=== PATIENT | female | born 1960 | race Caucasian/White ===

== ENCOUNTER → 2024-05-09 07:28 | Outpatient (REF) | payer OTHER, SELFPAY | LOC: DHCBC/DCA 07:28 | PROVIDERS: ATTENDING PHYSICIAN Internal Medicine Interventional Cardiology | DX: I10 Essential (primary) hypertension (principal); R06.09 Other forms of dyspnea; I25.10 Atherosclerotic heart disease of native coronary artery without angina pectoris; I25.5 Ischemic cardiomyopathy | CPT/HCPCS: 78452; 93017; A9500 ==

== ENCOUNTER → 2024-10-05 08:07 | Outpatient (REF) | payer OTHER, SELFPAY | LOC: WDC 08:07 | PROVIDERS: ATTENDING PHYSICIAN Nurse Practitioner Family | DX: Z12.31 Encounter for screening mammogram for malignant neoplasm of breast (principal) | CPT/HCPCS: 77063; 77067 ==

== ENCOUNTER 2024-11-07 07:10 | Emergency (ER) | payer OTHER, SELFPAY ==
[2024-11-07 07:12] VITALS: BP 162/82
--- NOTE | 2024-11-07 08:34 | ED.GENMED ---
History of Present Illness
<MOY Wilder - Last Filed: 11/07/24 08:52>
General
Chief Complaint: Eye Problems
Source: patient
Exam Limitations: none
Time Seen by Provider: 11/07/24 08:33
Nursing documentation reviewed up to this point in time: agreed with
History of Present Illness
History of Present Illness:
Patient is a 64-year-old female who presents to the ER for evaluation. Patient reports on Thursday 2 days ago she woke up with redness and mild swelling around the left face eye. She reports area is itchy. She complains of mild redness denies any
actual pain. She denies any fever or chills. She does not feel ill. She denies any actual eye pain or redness.
She has not taken anything for symptoms.
Past History
<MOY Wilder - Last Filed: 11/07/24 08:52>
Past History
ED Past Medical History: CAD and Other (Copper deficiency); Negative HTN or Hypercholesterolemia
ED Past Surgical History: Cardiac
Social History
Tobacco: Non-smoker
Alcohol: None
Drug: None
Personal:
Living: with family
Employment: Employed
Family History
Family History: Hypertension
Review of Systems
<MOY Wilder - Last Filed: 11/07/24 08:52>
Review of Systems
Allergies reviewed?: Yes
All Other Systems: ROS reviewed and negative except as documented in HPI and ROS
Constitutional: Reports no symptoms; Denies fever, fatigue or chills
EENT: Reports other (swelling around left face/eye region )
Respiratory: Reports no symptoms
Cardiac: Reports no symptoms
ABD/GI: Reports no symptoms
Skin: Reports other (mild redness to left face)
Neurological: Reports no symptoms
Psychiatric: Reports no symptoms
Phy Exam
<MOY Wilder - Last Filed: 11/07/24 08:52>
General Physical Exam
General Presentation: no apparent distress
General age: appears stated age
General Skin: warm and dry
General Habitus: normal
General Mental: alert
General Hydration: appears well hydrated
Eye Exam
Eye Exam: PERRL, EOMI and other (Conjunctiva clear mild redness to and around left eyelid very minimal swelling no pain with eye movement no induration no fluctuance to skin surrounding eye )
Eye Exam General: PERRL: bilateral and EOM intact: bilateral
Pupil Exam: Bilateral: round and reactive
Neurological Exam
Neurological Exam: alert and oriented x3
Musculoskeletal Exam
Musculoskeletal Exam: full ROM
Skin Exam
Skin Exam: normal color, warm/dry and other (Mild left-sided facial swelling around eyelid as documented above and around left cheek)
Psychiatric Exam
Psychiatric Exam: normal mood/affect
Course
<MOY Wilder - Last Filed: 11/07/24 08:52>
Orders/Labs/Results
Orders:
Orders
11/07/24 07:25
Visual Acuity- Treatment ONCE
11/07/24 08:40
Cephalexin Monohydrate [Keflex] 500 mg PO NOW STA
Vital Signs
Initial and Last Documented VS:
Initial Vital Signs
Temp Pulse Resp BP Pulse Ox
98.4 F 74 18 162/82 99
11/07/24 07:12 11/07/24 07:12 11/07/24 07:12 11/07/24 07:12 11/07/24 07:12
Last Documented Vital Signs
Temp Pulse Resp BP Pulse Ox
98.4 F 74 18 162/82 99
11/07/24 07:12 11/07/24 07:12 11/07/24 07:12 11/07/24 07:12 11/07/24 07:12
<Shane Ingram DO - Last Filed: 11/07/24 08:42>
Orders/Labs/Results
Orders:
Orders
11/07/24 07:25
Visual Acuity- Treatment ONCE
11/07/24 08:40
Cephalexin Monohydrate [Keflex] 500 mg PO NOW STA
Vital Signs
Initial and Last Documented VS:
Initial Vital Signs
Temp Pulse Resp BP Pulse Ox
98.4 F 74 18 162/82 99
11/07/24 07:12 11/07/24 07:12 11/07/24 07:12 11/07/24 07:12 11/07/24 07:12
Last Documented Vital Signs
Temp Pulse Resp BP Pulse Ox
98.4 F 74 18 162/82 99
11/07/24 07:12 11/07/24 07:12 11/07/24 07:12 11/07/24 07:12 11/07/24 07:12
<MOY Wilder - Last Filed: 11/07/24 08:52>
MDM/Problems Addressed
Differential Diagnosis Includes:
not limited to : facial cellulitis/allergic reaction
MDM/Problems Addressed:
Symptoms likely allergic reaction patient complains of itching to the area with mild redness and swelling however no actual eye pain or eye involvement no eye drainage. Triage note reports patient complains of blurry vision she denies any actual
blurry vision she feels that she is noticing the problem because of the swelling around her eyelid. Patient is in no acute distress nontoxic afebrile. She has not taken anything for symptoms will DC with ice ibuprofen she may either take
Benadryl/Claritin for allergic component however will still cover with Keflex for possible mild cellulitis.
Patient afebrile nontoxic discussed close follow-up and to return if any worsening of symptoms
<MOY Wilder - Last Filed: 11/07/24 08:52>
*Critical Care Note
Total Time (30-74mins, 75-104mins- exclusive of procedures): Not Applicable
ED Attending Note
<MOY Wilder - Last Filed: 11/07/24 08:52>
-
Portions of this chart may have been created with voice recognition software.� Occasional wrong word or��sound alike� substitutions may have occurred due to the inherent limitations of voice recognition software.
<Shane Ingram DO - Last Filed: 11/07/24 08:42>
ED Attending Note
Patient seen and examined by attending physician: Yes
I performed the substantive portion of visit, reviewed & personally made and approve the management plan that is documented in note by myself or JAKI.: Yes
ED Attending Note:
I have seen and evaluated the patient with a [id number] encounter. I have spoken to the advance practicer provider and involved in the medical history, the physical exam, medical decision making.
Evaluation and management service: agree unless noted differently below.
Results interpretation: agree unless noted differently below.
Focused HPI: 64-year-old female presenting with swelling and irritation to the left side of her face. She denies any new creams or fevers
Physical exam: Mild erythema surrounding left orbit. No proptosis
Medical Decision Making: Will treat as possible allergic reaction and will cover antibiotics to cover possible periorbital cellulitis
Discharge Plan
Departure
Patient Disposition: Home (Routine Discharge)
Date of Disposition: 11/07/24
Time of Disposition: 08:41
Patient with high blood pressure during this ER visit?: Yes
Condition: Fair
Covid-19: Not Applicable
Discharge Problem:
mild facial cellulitis
Instructions: Cellulitis (skin infection) in adults - Discharge instructions, BLOOD PRESSURE
Prescriptions:
New
cephalexin 500 mg capsule
500 mg PO Q6H Qty: 28 0RF
No Action
Darvocet-N 100 Tablet
PO Q4HPRN PRN (Reason: pain)
azithromycin 250 MG tablet
250 mg PO DAILY Qty: 6 0RF
Activity Restrictions/Additional Instructions:
As discussed this is likely allergic reaction however you will also be treated for possible mild skin infection with antibiotics. You were given the first dose here in the ER and a prescription was sent to your pharmacy. In addition. Please apply
ice, cool compresses to area several times a day. You may take ibuprofen and also either Benadryl or Claritin for allergic component. Follow-up with family doctor in the next several days and return if any worsening of symptoms including
increasing facial swelling ,fever chills pain or any further concerns.
Interventions
Interventions:
*Risk Screen - Suicide Last Done: 11/07/24 07:12
*General Assessment Last Done: 11/07/24 07:12
*Neglect/Abuse Screening Last Done: 11/07/24 07:12
Discharge Date and Time
Print Language: OCCITAN
[2024-11-07] MEDS: KEFLEX 500 MG PO (08:48)
== END 2024-11-07 09:05 | disposition home or self-care (01) ==
LOC: EMR 07:10
PROVIDERS: EMERGENCY PHYSICIAN Student in an Organized Health Care Education/Training Program; FAMILY PHYSICIAN Family Medicine
DX: L03.211 Cellulitis of face (principal); I25.10 Atherosclerotic heart disease of native coronary artery without angina pectoris
CPT/HCPCS: 99283

== ENCOUNTER 2025-01-26 15:45 | Emergency (ER) | payer OTHER, SELFPAY ==
[2025-01-26 15:49] VITALS: BP 137/61
--- NOTE | 2025-01-26 17:02 | ED.MUSCINJ ---
HPI-Injury
General
Chief Complaint: Musculo-Skeletal Complaint
Source: patient
Exam Limitations: none
Time Seen by Provider: 01/26/25 16:27
Nursing documentation reviewed up to this point in time: agreed with
History of Present Illness-Injury
Is this injury a work related problem?: No
Is pt an associate of [facility]?: No
Initial Injury comments:
Patient states she was getting up from a chair and rolled ankle. Unsure if foot was asleep. Denies hitting her head. COmplains of pain to her left lat ankle. Injuryoccurred this afternoon.
Past History
Past History
ED Past Medical History: CAD and Other (Copper deficiency); Negative HTN or Hypercholesterolemia
ED Past Surgical History: Cardiac
Social History
Tobacco: Non-smoker
Alcohol: None
Drug: None
Personal:
Living: with family
Employment: Employed
Family History
Family History: Hypertension
Review of Systems
Review of Systems
Allergies reviewed?: Yes
All Other Systems: ROS reviewed and negative except as documented in HPI and ROS
Constitutional: Reports no symptoms
EENT: Reports no symptoms
Respiratory: Reports no symptoms
Cardiac: Reports no symptoms
ABD/GI: Reports no symptoms
: Reports no symptoms
Musculoskeletal: Reports joint pain (pain to left lat ankle)
Skin: Reports no symptoms
Neurological: Reports no symptoms
Psychiatric: Reports no symptoms
Musculoskeletal Injury Exam
Musculoskeletal Injury Exam
Left Lateral Ankle:
Pain with Movement?: Moderate
Tender to palpation?: Moderate
Soft tissue swelling?: Moderate
External deformity and angulation?: None
Joint effusion?: None
Contusion?: None
Hematoma-local bleeding into tissue?: Moderate
Strain- Sprain- Tear (Connective tissue injury)?: Moderate
Crepitus with movement?: No
Joint instability?: No
Malalignment/deformity?: No
Range of motion: Limited
Distal skin color and temperature: normal-warm & good color
Capillary Refill: normal
Normal distal neurovascular exam?: Yes
Peripheral Pulses: posterior tibial (left): 3+ and dorsalis pedis (left): 3+
Phy Exam
General Physical Exam
General Presentation: well appearing and no apparent distress
General age: appears stated age
General Skin: warm and dry
General Habitus: normal
Musculoskeletal Exam
Musculoskeletal Exam: neuro vasc intact and other (achilles intact. No tenderness base of 5th, proximal tib/fib)
Skin Exam
Skin Exam: normal color, warm/dry and no rash
Psychiatric Exam
Psychiatric Exam: normal mood/affect
Injury Course
Orders/Labs/Results
Orders:
Orders
01/26/25 15:46
Ankle, left 3 view CR [CR Ankle - Left Min 3 Views ] Urgent
Comment:
Reason For Exam: pain, swelling
01/26/25 17:01
Ortho Boot Left- Treatment ONCE
Short or tall?: Tall
*Radiology
Radiology exam reviewed: radiology read reviewed
*Critical Care Note
Total Time (30-74mins, 75-104mins- exclusive of procedures): Not Applicable
ED Attending Note
-
Portions of this chart may have been created with voice recognition software.� Occasional wrong word or��sound alike� substitutions may have occurred due to the inherent limitations of voice recognition software.
Discharge Plan
Departure
Prescriptions:
No Action
Darvocet-N 100 Tablet
PO Q4HPRN PRN (Reason: pain)
azithromycin 250 MG tablet
250 mg PO DAILY Qty: 6 0RF
cephalexin 500 mg capsule
500 mg PO Q6H Qty: 28 0RF
Referrals:
NONE,* [Family Provider, Internal Medicine]
Interventions
Interventions:
*Risk Screen - Suicide Last Done: 01/26/25 15:49
*Neglect/Abuse Screening Last Done: 01/26/25 15:49
Discharge Date and Time
Print Language: SCOTTISH
== END 2025-01-26 17:50 | disposition home or self-care (01) ==
LOC: EMR 15:45
PROVIDERS: EMERGENCY PHYSICIAN Emergency Medicine; FAMILY PHYSICIAN Family Medicine
DX: S93.402A Sprain of unspecified ligament of left ankle, initial encounter (principal); X50.1XXA Overexertion from prolonged static or awkward postures, initial encounter; I25.10 Atherosclerotic heart disease of native coronary artery without angina pectoris; I10 Essential (primary) hypertension; K21.9 Gastro-esophageal reflux disease without esophagitis; D64.9 Anemia, unspecified; E61.0 Copper deficiency; I25.2 Old myocardial infarction
CPT/HCPCS: 99283; 29515; 73610